=== PATIENT | male | born 1950 | race African-American/Black ===

== ENCOUNTER 2016-05-19 22:36 | Emergency (ER) | payer MEDICAID ==
[~2016-05-19] VITALS: Ht 175.3 cm; Wt 102.0 kg
[~2016-05-19 22:36] MED LIST: AMLO5TAB4 PO; ATOR10TA PO; Aspirin PO; HYDR25TA PO; LISI10TA5 PO
[2016-05-20 00:58] LABS: BASOPHILS % 0.6 % (0.0-2.0); EOSINOPHILS % 1.6 % (0.0-5.0); HEMATOCRIT. 46.4 % (42.0-52.0); HEMOGLOBIN. 16.1 g/dL (14.0-18.0); LYMPHOCYTES % 27.4 % (20.0-50.0); MEAN CORPUSCULAR HEMOGLOBIN 33.6 pg (28.0-32.0); MEAN CORPUSCULAR HGB CONC 34.8 g/dL (31.0-37.0); MEAN CORPUSCULAR VOLUME 96.4 fL (80.0-94.0); MEAN PLATELET VOLUME 8.3 fl (7.4-10.4); MONOCYTES % 9.7 % (2.0-8.0); NEUTROPHILS % 60.7 % (40.0-76.0); PLATELET 207 x1000/uL (130-400); RED BLOOD CELL COUNT 4.81 mill/uL (4.7-6.1); RED CELL DISTRIBUTION WIDTH 13.2 % (11.6-14.6); WHITE BLOOD COUNT 7.6 x1000/uL (4.5-11.0)
[2016-05-20 01:17] LABS: ALANINE AMINOTRANSFERASE 40 IU/L (13-61); ALBUMIN 3.9 g/dL (3.4-5.0); ANION GAP 11; CALCIUM 9.3 mg/dL (8.5-10.1); CARBON DIOXIDE 29 mEq/L (21-32); CHLORIDE 102 mEq/L (98-107); INDEX HEMOLYSI 3 (1-3); INDEX ICTERIC 1 (1-4); INDEX LIPEMIC 1 (1-3); TROPONIN I 0.04 ng/mL (0.00-0.04); UREA NITROGEN BLOOD 21 mg/dL (7-21); eGFR > 60 mL/min (>60)
[2016-05-20 03:53] VITALS: BP 134/78
== END 2016-05-20 03:56 | disposition home or self-care (01) ==
LOC: ER 22:57
DX: M54.10 Radiculopathy, site unspecified (principal); F17.200 Nicotine dependence, unspecified, uncomplicated; R07.89 Other chest pain; I10 Essential (primary) hypertension; Z98.890 Other specified postprocedural states
CPT/HCPCS: 36415; 71010; 80053; 84484; 85025; 93005; 99285; Z7610

== ENCOUNTER 2017-01-13 17:02 | Emergency (ER) | payer MEDICAID | END 2017-01-13 19:10 | disposition left against medical advice (07) | LOC: ER 19:08 | DX: I10 Essential (primary) hypertension (principal); Z53.21 Procedure and treatment not carried out due to patient leaving prior to being seen by health care provider ==

== ENCOUNTER 2020-01-31 14:46 | Emergency (ER) | payer MEDICARE, MEDICAID ==
[~2020-01-31] VITALS: Ht 172.7 cm; Wt 100.0 kg
[~2020-01-31 14:46] MED LIST changes: -AMLO5TAB4 PO; -ATOR10TA PO; +CHOL3000 PO; +FINA5TAB11 PO; +FURO40TA5 MT; +HYDR100T26 PO; -LISI10TA5 PO; +METO-385 MT; +NIFE90TA60 MT; +SIMV80TA90 PO; +TAMS-11 PO
[2020-01-31 16:05] LABS: CLARITY URINE CLOUDY (CLEAR); COLOR URINE DK YELLOW (YELLOW); KETONES URINE TRACE (NEGATIVE); LEUKOCYTE ESTERASE URINE 2+ (NEGATIVE); NITRITE URINE POSITIVE (NEGATIVE); OCCULT BLOOD URINE NEGATIVE (NEGATIVE); PH URINE 5.5 (4.5-8.0); PROTEIN URINE 1+ (NEGATIVE); SPECIFIC GRAVITY URINE 1.026 (1.005-1.030)
[2020-01-31 16:49] VITALS: BP 202/111
== END 2020-01-31 17:07 | disposition home or self-care (01) ==
LOC: ER 14:46
DX: N30.00 Acute cystitis without hematuria (principal); I16.0 Hypertensive urgency; E78.00 Pure hypercholesterolemia, unspecified
CPT/HCPCS: 81003; 93005; 99284

== ENCOUNTER 2020-04-05 14:02 | Emergency (ER) | payer MEDICARE, MEDICAID, OTHER ==
[~2020-04-05] VITALS: Ht 167.6 cm; Wt 100.0 kg
[2020-04-05 14:03] VITALS: BP 107/53
[2020-04-05 14:38] LABS: BASOPHILS % 0.6 % (0.0-2.0); EOSINOPHILS % 3.8 % (0.0-5.0); HEMATOCRIT. 42.5 % (42.0-52.0); HEMOGLOBIN. 14.2 g/dL (14.0-18.0); LYMPHOCYTES % 29.8 % (20.0-50.0); MEAN CORPUSCULAR HEMOGLOBIN 32.4 pg (28.0-32.0); MEAN CORPUSCULAR VOLUME 97.1 fL (80.0-94.0); MONOCYTES % 9.7 % (2.0-8.0); NEUTROPHILS % 56.1 % (40.0-76.0); PLATELET 302 x1000/uL (130-400); RED BLOOD CELL COUNT 4.38 mill/uL (4.7-6.1); RED CELL DISTRIBUTION WIDTH 14.8 % (11.6-14.6)
[2020-04-05 14:41] LABS: CHLORIDE 106 mEq/L (98-107)
[2020-04-05 14:44] LABS: ETHANOL BLOOD < 10 mg/dL
[2020-04-05] MEDS ORDERED: FUROSEMIDE 40MG/4ML VIAL IVP ONE (15:00)
[2020-04-05 16:16] LABS: CLARITY URINE CLEAR (CLEAR); COLOR URINE YELLOW (YELLOW); KETONES URINE NEGATIVE (NEGATIVE); LEUKOCYTE ESTERASE URINE TRACE (NEGATIVE); NITRITE URINE NEGATIVE (NEGATIVE); OCCULT BLOOD URINE NEGATIVE (NEGATIVE); PH URINE 6.5 (4.5-8.0); PROTEIN URINE NEGATIVE (NEGATIVE); UROBILINOGEN URINE 0.2 E.U./dL (0.2-1.0)
[2020-04-05 16:47] LABS: *AMPHETAMINES SCREEN URINE NEGATIVE (NEGATIVE); *BARBITURATES SCREEN URINE NEGATIVE (NEGATIVE); *BENZODIAZEPINES SCREEN URINE NEGATIVE (NEGATIVE); *COCAINE SCREEN URINE NEGATIVE (NEGATIVE); METHADONE URINE SCREEN NEGATIVE (NEGATIVE)
[2020-04-05 16:48] LABS: CANNABINOID URINE SCREEN NEGATIVE (NEGATIVE); OPIATES URINE SCREEN PRESUMTIVE POSITIVE (NEGATIVE); PHENCYCLIDINE URINE SCREEN NEGATIVE (NEGATIVE)
== END 2020-04-05 17:04 | disposition home or self-care (01) ==
LOC: ER 14:02
DX: I11.0 Hypertensive heart disease with heart failure (principal); R07.89 Other chest pain; R60.0 Localized edema; I50.9 Heart failure, unspecified; E78.5 Hyperlipidemia, unspecified
CPT/HCPCS: 36415; 71045; 80053; 80305; 80320; 81003; 83690; 83880; 84484; 85025; 93005; 96374; 99285; J1940; G0480

== ENCOUNTER 2020-10-02 00:03 | Emergency (ER) | payer MEDICARE, MEDICAID ==
[~2020-10-02] VITALS: Ht 175.3 cm; Wt 105.0 kg
[2020-10-02] MEDS ORDERED: ASPIRIN 81MG TABLET PO ONE (04:15)
[2020-10-02 04:38] LABS: BASOPHILS % 0.9 % (0.0-2.0); EOSINOPHILS % 2.5 % (0.0-5.0); HEMOGLOBIN. 14.8 g/dL (14.0-18.0); LYMPHOCYTES % 22.7 % (20.0-50.0); MEAN CORPUSCULAR HEMOGLOBIN 34.1 pg (28.0-32.0); MEAN PLATELET VOLUME 8.1 fl (7.4-10.4); MONOCYTES % 11.9 % (2.0-8.0); PLATELET 312 x1000/uL (130-400); RED BLOOD CELL COUNT 4.35 mill/uL (4.7-6.1); RED CELL DISTRIBUTION WIDTH 13.4 % (11.6-14.6)
[2020-10-02 04:50] LABS: CHLORIDE 108 mEq/L (98-107)
[2020-10-02 04:54] LABS: ETHANOL BLOOD < 10 mg/dL
[2020-10-02 05:11] LABS: CLARITY URINE CLEAR (CLEAR); COLOR URINE YELLOW (YELLOW); KETONES URINE NEGATIVE (NEGATIVE); LEUKOCYTE ESTERASE URINE NEGATIVE (NEGATIVE); NITRITE URINE NEGATIVE (NEGATIVE); OCCULT BLOOD URINE NEGATIVE (NEGATIVE); PH URINE 5.5 (4.5-8.0); PROTEIN URINE NEGATIVE (NEGATIVE); SPECIFIC GRAVITY URINE 1.016 (1.005-1.030); UROBILINOGEN URINE 0.2 E.U./dL (0.2-1.0)
[2020-10-02] MEDS ORDERED: MORPHINE SULFATE 4 MG/ML CPJ (NOT FOR IM USE) IV ONE (05:15)
[2020-10-02 05:42] LABS: *AMPHETAMINES SCREEN URINE NEGATIVE (NEGATIVE); *BENZODIAZEPINES SCREEN URINE NEGATIVE (NEGATIVE); OPIATES URINE SCREEN PRESUMTIVE POSITIVE (NEGATIVE)
[2020-10-02 05:43] LABS: *BARBITURATES SCREEN URINE NEGATIVE (NEGATIVE); *COCAINE SCREEN URINE NEGATIVE (NEGATIVE); CANNABINOID URINE SCREEN NEGATIVE (NEGATIVE); METHADONE URINE SCREEN NEGATIVE (NEGATIVE); PHENCYCLIDINE URINE SCREEN NEGATIVE (NEGATIVE)
[2020-10-02] MEDS ORDERED: CLONIDINE 0.1MG TABLET PO SCH (07:00)
[2020-10-02] MEDS ORDERED: ACETAMINOPHEN 325MG TABLET PO SCH (07:00)
[2020-10-02 09:14] VITALS: BP 164/76
== END 2020-10-02 09:19 | disposition home or self-care (01) ==
LOC: ER 00:03
DX: I10 Essential (primary) hypertension (principal); R51.9 Headache, unspecified
CPT/HCPCS: 36415; 70450; 71045; 80053; 80305; 80320; 81003; 82962; 83880; 84484; 85025; 93005; 96374; 99285; J2270; G0480

== ENCOUNTER 2021-06-11 15:27 | Emergency (ER) | payer MEDICARE, MEDICAID ==
[~2021-06-11] VITALS: Ht 175.3 cm; Wt 111.0 kg
[2021-06-11] MEDS ORDERED: VISCOUS LIDOCAINE 2% 15 ML UDC MM STA ×2 (16:07→16:12)
[2021-06-11] MEDS ORDERED: OXYMETAZOLINE HCL NASAL SPRAY 15ML BOTHNSTRLS SCH ×2 (16:40→21:00)
[2021-06-11] MEDS ORDERED: CLONIDINE 0.2MG TABLET PO ONE (16:45)
[2021-06-11] MEDS: CLONIDINE 0.2MG TABLET PO NR ×2 (16:54→16:56)
[2021-06-11 17:04] LABS: BASOPHILS % 0.6 % (0.0-2.0); EOSINOPHILS % 2.3 % (0.0-5.0); HEMATOCRIT. 35.8 % (42.0-52.0); HEMOGLOBIN. 12.1 g/dL (14.0-18.0); LYMPHOCYTES % 20.6 % (20.0-50.0); MEAN CORPUSCULAR VOLUME 103.5 fL (80.0-94.0); MEAN PLATELET VOLUME 8.5 fl (7.4-10.4); MONOCYTES % 13.3 % (2.0-8.0); NEUTROPHILS % 63.2 % (40.0-76.0); PLATELET 238 x1000/uL (130-400); RED BLOOD CELL COUNT 3.46 mill/uL (4.7-6.1); RED CELL DISTRIBUTION WIDTH 13.6 % (11.6-14.6)
[2021-06-11 17:08] LABS: CHLORIDE 109 mEq/L (98-107)
[2021-06-11 17:12] LABS: INR 1.1; PARTIAL THROMBOPLASTIN TIME < 21.0 sec (23.4-31.0); PROTHROMBIN TIME 11.3 sec (9.6-11.0)
[2021-06-11] MEDS ORDERED: AMOXICILLIN/POTASSIUM CLAVULANATE 875/125MG TAB PO ONE (18:00)
[2021-06-11] MEDS ORDERED: CLONIDINE 0.1MG TABLET PO ONE (18:15)
[2021-06-11] MEDS ORDERED: AMLODIPINE 10MG TABLET PO ONE (18:15)
[2021-06-11] MEDS ORDERED: AMOX-424 MT (18:38)
[2021-06-11] MEDS ORDERED: METOPROLOL TARTRATE 50MG TABLET PO ONE (19:15)
[2021-06-11 21:08] VITALS: BP 200/102
== END 2021-06-11 21:10 | disposition home or self-care (01) ==
LOC: ER 15:35
DX: R04.0 Epistaxis (principal); I11.0 Hypertensive heart disease with heart failure; I50.9 Heart failure, unspecified; E78.00 Pure hypercholesterolemia, unspecified; N40.0 Benign prostatic hyperplasia without lower urinary tract symptoms
CPT/HCPCS: 30901; 36415; 80053; 85025; 86850; 86900; 99284

== ENCOUNTER 2021-06-12 10:05 | Emergency (ER) | payer MEDICARE, MEDICAID ==
[~2021-06-12] VITALS: Ht 175.3 cm; Wt 111.0 kg
[~2021-06-12 10:05] MED LIST changes: +AMOX-424 MT
[2021-06-12 12:36] VITALS: BP 235/114
== END 2021-06-12 13:20 | disposition home or self-care (01) ==
LOC: ER 10:52
DX: R04.0 Epistaxis (principal); I10 Essential (primary) hypertension; Z87.891 Personal history of nicotine dependence; Z79.899 Other long term (current) drug therapy
CPT/HCPCS: 30901; 99284